=== PATIENT | male | born 1980 | race Caucasian/White ===

== ENCOUNTER 2019-10-11 13:39 | Observation (INO) | payer OTHER ==
[2019-10-11 14:30] LABS: #Basophils 0.1 thou/uL (0.0-0.2); #Eosinphils 0.1 thou/uL (0.0-0.7); #Lymphocytes 3.5 thou/uL (1.20-3.40); #Monocytes 0.8 thou/uL (0.11-0.59); #Neutrophils 8.6 thou/uL (1.40-6.50); %Basophils 0.7 % (0.0-1.0); %Eosinophils 0.8 % (0.0-10.0); %Lymphocytes 26.7 % (21.0-51.0); %Monocytes 6.1 % (0.0-10.0); %Neutrophils 65.7 % (42.0-75.0); Hemoglobin 16.1 g/dL (14.0-18.0); Mean Corpuscular HGB CONC 33.8 g/dL (32.0-36.0); Mean Corpuscular Hemoglobin 29.1 pg (27.0-31.0); Mean Corpuscular Volume 86.3 fL (78.0-98.0); Mean Platelet Volume 6.9 fL (7.4-10.4); Platelet Count 375 thou/uL (130-400); RBC Distribution Width 12.4 % (11.5-14.5); Red Blood Cell (RBC) Count 5.51 mill/uL (4.70-6.10); White Blood Cell (WBC) Count 13.1 thou/uL (4.8-10.8)
[2019-10-11 14:52] LABS: ALT (SGPT) 24 U/L (8-55); AST (SGOT) 28 U/L (5-34); Albumin 4.3 g/dL (3.5-5.0); Alkaline Phosphatase 74 U/L (40-110); Anion Gap 14 mmol/L (10-20); BUN (Urea Nitrogen) 13 mg/dL (8.9-20.6); Bilirubin, Total 0.5 mg/dL (0.2-1.2); Calc. Creatinine Clearance 0 mL/min (70-130); Calcium 9.2 mg/dL (7.8-10.44); Carbon Dioxide 27 mmol/L (22-29); Chloride 101 mmol/L (98-107); Estimated GFR-MDRD Greater than 90; Globulin 3.8 g/dL (2.4-3.5); Glucose 90 mg/dL (70-105); Potassium 4.2 mmol/L (3.5-5.1); Protein, Total 8.1 g/dL (6.0-8.3); Sodium 138 mmol/L (136-145)
[2019-10-11] MEDS ORDERED: Ondansetron PF 4 MG/2 ML Vial IVP PRN (18:27)
[2019-10-11] MEDS ORDERED: hydrALAZINE 20 MG/ML VIAL SLOW IVP PRN (18:27)
[2019-10-11] MEDS ORDERED: Acetaminophen 325 MG TAB PO PRN (18:27)
[2019-10-11] MEDS ORDERED: Nitroglycerin 0.4 MG TAB (25 Tab Bottle) PO PRN (18:28)
--- NOTE | 2019-10-11 18:31 | PDOC.HHP ---
Hospitalist HPI - History of Present Illness Chest pain History of Present Illness: Patient is a pleasant 34-year-old gentleman who was seen in the emergency room on October 11, 2019. He is currently an inmate at the group home. Reports that he woke up from sleep and had difficulty breathing. He reports pain over the left side of his chest, radiating down left arm, lasted 2 hours, constant, no known aggravating or relieving factors. He denies any associated nausea, vomiting or lightheadedness. He denies any cough. He reportedly told the emergency room physician that he was exposed to COVID positive person 2 days ago. In the emergency room, patient was found to have hypertensive urgency. He was referred to hospitalist service for admission. Patient endorses that he has a history of high blood pressure in the past and takes clonidine on a as needed basis. ED Course: BP: 146/110, MAP: 122, Pulse: 78, Resp: 15, Pain: 3, O2 sat: 98 on (Room Air), Time: 10/11/2019 16:55. Hospitalist ROS - Review of Systems Constitutional: denies: fever, chills, sweats, weakness, malaise Respiratory: reports: SOB with excertion. denies: cough, dry, shortness of breath, hemoptysis, pleuritic pain, sputum, wheezing Cardiovascular: reports: chest pain. denies: palpitations, orthopnea, paroxysmal noc. dyspnea, edema, light headedness Hospitalist History - Past Medical History Other Medical History: Past medical history: Hypertension Surgical history: None Social history: Patient denies tobacco use, alcohol use or recreational drug use. Family history: He denies any family history of premature coronary artery disease. Allergies: No known drug allergies. Current medications: Clonidine as needed. - Exam General Appearance: awake alert Eye: anicteric sclera ENT: normocephalic atraumatic Neck: supple, no thyromegaly Heart: RRR, no rubs Respiratory: CTAB, normal chest expansion Gastrointestinal: soft, non-tender, normal bowel sounds Extremities: no cyanosis Skin - other findings: Multiple tattoos Musculoskeletal: no muscle wasting Psychiatric: normal affect, normal behavior Hospitalist Results - Labs Result Diagrams: 10/11/19 14:20 10/11/19 14:20 Lab results: WBC 13.1 thou/uL (4.8-10.8) H 10/11/19 14:20 Hgb 16.1 g/dL (14.0-18.0) 10/11/19 14:20 Hct 47.6 % (42.0-52.0) 10/11/19 14:20 MCV 86.3 fL (78.0-98.0) 10/11/19 14:20 Plt Count 375 thou/uL (130-400) 10/11/19 14:20 Neutrophils % 65.7 % (42.0-75.0) 10/11/19 14:20 Sodium 138 mmol/L (136-145) 10/11/19 14:20 Potassium 4.2 mmol/L (3.5-5.1) 10/11/19 14:20 Chloride 101 mmol/L (98-107) 10/11/19 14:20 Carbon Dioxide 27 mmol/L (22-29) 10/11/19 14:20 BUN 13 mg/dL (8.9-20.6) 10/11/19 14:20 Creatinine 0.82 mg/dL (0.7-1.3) 10/11/19 14:20 Glucose 90 mg/dL (70-105) 10/11/19 14:20 Calcium 9.2 mg/dL (7.8-10.44) 10/11/19 14:20 Total Bilirubin 0.5 mg/dL (0.2-1.2) 10/11/19 14:20 AST 28 U/L (5-34) 10/11/19 14:20 ALT 24 U/L (8-55) 10/11/19 14:20 Alkaline Phosphatase 74 U/L (40-110) 10/11/19 14:20 Troponin I Less than 0.010 ng/mL (< 0.028) 10/11/19 14:20 Serum Total Protein 8.1 g/dL (6.0-8.3) 10/11/19 14:20 Albumin 4.3 g/dL (3.5-5.0) 10/11/19 14:20 - EKG Interpretation EKG: Normal sinus rhythm Hospitalist H&P A/P - Plan Plan: Patient is a pleasant 39-year-old gentleman who was seen in the emergency room on October 11, 2019. His problem list includes: 1. Hypertensive urgency: Patient is presenting with hypertensive urgency. His blood pressures have improved after coming to the emergency room. I will start him on amlodipine. I will add PRN IV hydralazine. Once his stress test is concluded, he can be started on a beta-izaiah. 2. Chest pain: Monitor on telemetry, trend troponins and stress test in the morning. Level of risk: Moderate. Level of complexity: Moderate. Estimated length of stay in the hospital: Less than 2 midnights.
[2019-10-11] MEDS ORDERED: Amlodipine 5 MG TAB PO SCH (18:45)
[2019-10-11] MEDS ORDERED: Metoprolol Tartrate 25 MG TAB PO SCH (21:00)
[2019-10-11 22:06] VITALS: BMI 41.3
[2019-10-11] MEDS ORDERED: Aspirin 325 mg Enteric Coated Tablet PO SCH (22:30)
[2019-10-12 05:26] LABS: #Basophils 0.1 thou/uL (0.0-0.2); #Eosinphils 0.2 thou/uL (0.0-0.7); #Lymphocytes 3.8 thou/uL (1.20-3.40); #Monocytes 0.8 thou/uL (0.11-0.59); #Neutrophils 5.8 thou/uL (1.40-6.50); %Eosinophils 1.4 % (0.0-10.0); %Lymphocytes 35.7 % (21.0-51.0); %Monocytes 7.9 % (0.0-10.0); Mean Corpuscular HGB CONC 33.6 g/dL (32.0-36.0); Mean Corpuscular Hemoglobin 29.3 pg (27.0-31.0); Mean Corpuscular Volume 87.1 fL (78.0-98.0); Platelet Count 345 thou/uL (130-400); RBC Distribution Width 12.5 % (11.5-14.5); Red Blood Cell (RBC) Count 5.11 mill/uL (4.70-6.10); White Blood Cell (WBC) Count 10.7 thou/uL (4.8-10.8)
[2019-10-12 05:36] LABS: Anion Gap 13 mmol/L (10-20); BUN (Urea Nitrogen) 15 mg/dL (8.9-20.6); Calc. Creatinine Clearance 223 mL/min (70-130); Calcium 8.9 mg/dL (7.8-10.44); Carbon Dioxide 29 mmol/L (22-29); Chloride 100 mmol/L (98-107); Estimated GFR-MDRD Greater than 90; Glucose 79 mg/dL (70-105); Potassium 3.9 mmol/L (3.5-5.1); Sodium 138 mmol/L (136-145)
[2019-10-12 07:43] VITALS: BP 173/106; TEMP 96.8
--- NOTE | 2019-10-12 08:19 | RAD ---
PORTABLE CHEST: Date: 10/11/2019 PROVIDED CLINICAL HISTORY: Chest pain and shortness of breath. FINDINGS: Evaluation is limited by patient body habitus. Cardiac and mediastinal silhouette is within normal limits for portable technique. No focal consolida tion, pleural fluid, or pneumothorax apparent. IMPRESSION: No evidence for an acute cardiopulmonary process. POS: DIONISIO
[2019-10-12] MEDS ORDERED: Aspirin 325 mg Enteric Coated Tablet PO SCH (09:00)
[2019-10-12] MEDS ORDERED: Amlodipine 5 MG TAB PO SCH (09:00)
--- NOTE | 2019-10-12 11:29 | EKG ---
Test Reason : Blood Pressure : / mmHG Vent. Rate : 078 BPM Atrial Rate : 078 BPM P-R Int : 146 ms QRS Dur : 092 ms QT Int : 394 ms P-R-T Axes : -09 -09 086 degrees QTc Int : 449 ms Normal sinus rhythm Normal ECG Confirmed by FARNAZ TATE MD ([id number]), art editor LU CURRAN ([id number]) on 10/12/2019 11:29:24 AM Referred By: Confirmed By:FARNAZ TATE MD
--- NOTE | 2019-10-12 15:20 | DIS ---
DATE OF ADMISSION: 10/11/2019 DATE OF DISCHARGE: 10/12/2019 PRIMARY CARE PROVIDER: None. The patient left against medical advice on October 12, 2019. HOSPITAL COURSE: Mr. Faulkner is a pleasant 39-year-old gentleman, who was admitted to [facility] on October 11, 2019, on observation status for chest pain and hypertensive urgency. Blood pressure was brought under control. The plan was to discharge him home if stress test was normal. He went down for a stress test and refused to have the stress test. He decided to leave the hospital against medical advice. Job ID: [id number]
[2019-10-12 16:02] LABS: SARS-CoV-2 MS2 Positive; SARS-CoV-2 N Gene Negative; SARS-CoV-2 S Gene Negative; SARS-CoV-2 by NAA Not Detected (NotDetected); SARS-CoV-2 orf1ab Negative
== END 2019-10-12 12:48 | disposition left against medical advice (07) ==
LOC: ERS 13:39 → EEVIPCON 13:39 → 2SW 16:30
PROVIDERS: ADMIT Internal Medicine; ATTEND Internal Medicine
DX: I16.0 Hypertensive urgency (principal); I10 Essential (primary) hypertension; R07.9 Chest pain, unspecified; Z20.828 Contact with and (suspected) exposure to other viral communicable diseases; Z53.29 Procedure and treatment not carried out because of patient's decision for other reasons
CPT/HCPCS: 36415; 71045; 80048; 80053; 84484; 85025; 87635; 93005; 94760; G0378; U0003